=== PATIENT | female | born 1995 | race African-American/Black ===

== ENCOUNTER 2022-07-30 12:24 | Emergency (ER) | payer BC ==
[2022-07-30] MEDS ORDERED: diphenhydrAMINE 50 MG/ML VIAL ONE (13:55)
[2022-07-30] MEDS ORDERED: Metoclopramide HCl 10 MG/2 ML VIAL ONE (13:55)
[2022-07-30] MEDS ORDERED: Dexamethasone 10 MG/ML VIAL ONE (13:55)
[2022-07-30] MEDS ORDERED: Ketorolac Tromethamine 30 MG/ML VIAL ONE (13:56)
[2022-07-30] MEDS ORDERED: diphenhydrAMINE 25 MG CAP ONE (14:23)
[2022-07-30] MEDS ORDERED: Metoclopramide HCl 10 MG TAB ONE (14:23)
[2022-07-30 14:49] LABS: Pregnancy Test - Urine (BHCG) POSITIVE (Negative); Pregu Control Background? CLEAR/WHITE (CLR/WHITE); Pregu Control Bar Appear? YES (CONTROL BAR); Specific Gravity 1.015 (1.002-1.036)
== END 2022-07-30 15:50 | disposition home or self-care (01) ==
LOC: CSHERS 12:24
DX: R51.9 Headache, unspecified (principal); Z32.01 Encounter for pregnancy test, result positive
CPT/HCPCS: 70450; 81025; 96372; J1100; J1200; J1885; J2765